=== PATIENT | male | born 1990 | race Caucasian/White ===

== ENCOUNTER 2017-05-07 23:08 | Inpatient (IN) | payer MEDICAID ==
[~2017-05-07] VITALS: Ht 170.2 cm; Wt 51.7 kg
[2017-05-07] MEDS ORDERED: SODIUM CHLORIDE 0.9% 1,000 ML IV ONE (23:14)
[2017-05-07] MEDS ORDERED: InsuLIN REG 1unit/0.01ml Soln (100units/ml) IV ONE (23:15)
[2017-05-08] VITALS (14 sets, daily range): BP systolic 73–122; BP diastolic 34–72
[2017-05-08] MEDS ORDERED: InsuLIN R (HUMAN) 100 UNITS in SODIUM CHL 0.9% 99 ML IV SCH ×2 (00:01→06:55)
[2017-05-08] MEDS ORDERED: DEXTROSE (50%) 50ML SYRG IV PRN ×3 (00:15→12:00)
[2017-05-08 00:30] LABS: Allen Test Yes; Base Excess -30.8 mmol/L (-2.0-2.0); Blood 02Sat 97.1 % (96-100); Blood COHb 0.3 % (0.5-1.5); Blood MetHb 0.5 % (0.0-1.5); HCO3 1.9 mmol/L (22-26.0); HHb 2.9 % (0.0-5.0); MODE NASAL CANNULA; O2Hb 96.3 % (94.0-97.0); PCO2 11.7 mmHg (35.0-45.0); PCO2(T) 11.7 mmHg (35.0-45.0); PO2 160.3 mmHg (80.0-100.0); PO2(T) 160.3 mmHg (80.0-100.0); Sample Type Arterial; pH 6.838 (7.350-7.450)
[2017-05-08] MEDS: SODIUM CHLORIDE 0.9% 1,000 ML IV SCH ×7 (00:30→23:18)
[2017-05-08 00:33] LABS: Basophils # (auto) 0 uL; Basophils % (auto) 0.3 % (0.0-2.0); CONDITION Y; Eosinophils # (auto) 0.1 uL; Eosinophils % (auto) 0.6 % (0.0-7.0); Hematocrit 41.7 % (41.0-53.0); Hemoglobin 13.2 g/dL (13.5-17.5); Lymphocytes # (auto) 2.2 uL; Lymphocytes % (auto) 12.6 % (10.0-50.0); Mean Corpuscular Hemoglobin 28.5 pg (28.0-32.0); Mean Corpuscular Hgb Conc. 31.7 g/dL (32.0-36.0); Mean Corpuscular Volume 90.1 fL (80.0-100.0); Mean Platelet Volume 9.3 fL (7.4-10.4); Monocytes # (auto) 0.1 uL; Monocytes % (auto) 0.8 % (0.0-12.0); Neutrophils # (auto) 15.3 uL; Neutrophils % (auto) 85.7 % (37.0-80.0); Platelet Count (auto) 353 10^3/uL (140-450); Red Cell Distribution Width 15.8 % (11.6-16.0); White Blood Cell 17.8 10^3/uL (4.4-10.8)
[2017-05-08] MEDS ORDERED: ETOMIDATE (2MG/ML) 20ML VIAL IV ONE ×3 (00:33→01:00)
[2017-05-08] MEDS ORDERED: SUCCINYLCHOLINE CHLORIDE 20 MG/ML 10ML VIAL IV ONE ×3 (00:33→01:00)
[2017-05-08] MEDS ORDERED: MIDAZOLAM DRIP 50 mg/50mL NS 50 ML IV ONE (00:37)
[2017-05-08 00:41] LABS: INR 1.02 (0.9-1.15); Partial Thromboplastin Time 28.2 sec (22.64-33.71); Prothrombin Time 11.1 sec (9.37-12.3)
[2017-05-08 00:46] LABS: Albumin 3.6 g/dL (3.4-5.0); Anion Gap 34 (5-15); Blood Urea Nitrogen 33 mg/dL (7-18); Chloride 104 mmol/L (98-107); Magnesium 2.6 mg/dL (1.6-2.6); Sodium 141 mmol/L (136-145)
[2017-05-08 00:49] LABS: Aspartate Aminotransferase 13 U/L (15-37); BUN/Creatinine Ratio 22.6; Bilirubin, Total 0.4 mg/dL (0.2-1.0); GFR African American 76 mL/min; GFR Non-African American 63 mL/min; Total Protein 7.4 g/dL (6.4-8.2)
[2017-05-08] MEDS ORDERED: MIDAZOLAM DRIP 50 mg/50mL NS 50 ML IV SCH (00:51)
[2017-05-08 00:54] LABS: B-Type Natriuretic Peptide 10.91 pg/mL (0-100)
[2017-05-08] MEDS: ACCU-CHEK COMFORT CURVE STRIP VI SCH ×15 (01:00→23:39)
[2017-05-08 01:04] LABS: Carbon Dioxide 3 mmol/L (21-32)
[2017-05-08 01:05] LABS: Alkaline Phosphatase 122 U/L (45-117); Glucose 776 mg/dL (74-106)
[2017-05-08 01:07] LABS: Temperature: 22.9 C (20.0-25.0)
[2017-05-08] MEDS ORDERED: ROCURONIUM 10MG/ML 10ML VIAL IV ONE (01:15)
[2017-05-08] MEDS ORDERED: SODIUM BICARBONATE 8.4% INJ 50ML SYRINGE ONE ×3 (01:15→06:06)
[2017-05-08] MEDS ORDERED: SODIUM BICARBONATE 8.4 % INJ 50ML VIAL IV ONE ×3 (01:15→17:30)
[2017-05-08] MEDS ORDERED: PROPOFOL 100 ML IV ONE (01:20)
[2017-05-08 01:22] LABS: Urine RBC None Seen /hpf (0 - 3)
[2017-05-08] MEDS ORDERED: PROPOFOL 100 ML IV SCH (01:38)
[2017-05-08 01:56] LABS: Urine Bilirubin Negative (Negative); Urine Blood Negative /uL (Negative); Urine Color Colorless (Yellow); Urine Hyaline Cast FEW /lpf (0 - 2); Urine Nitrite Negative (Negative); Urine Urobilinogen Normal (Negative)
[2017-05-08 01:57] LABS: Urine Glucose 4+ mg/dL (Normal); Urine Ketone 4+ (Negative)
[2017-05-08 03:11] LABS: Allen Test Yes; Base Excess -22.6 mmol/L (-2.0-2.0); Blood 02Sat 97.8 % (96-100); Blood COHb 0.3 % (0.5-1.5); Blood MetHb 0.5 % (0.0-1.5); HCO3 4.7 mmol/L (22-26.0); HHb 2.2 % (0.0-5.0); MODE VENT - A/C; PCO2 14.8 mmHg (35.0-45.0); PCO2(T) 14.8 mmHg (35.0-45.0); PO2 156.7 mmHg (80.0-100.0); PO2(T) 156.7 mmHg (80.0-100.0); Sample Type Arterial; pH 7.116 (7.350-7.450)
[2017-05-08] MEDS ORDERED: SODIUM CHLORIDE 0.9% 1,000 ML IV SCH ×3 (04:01→10:55)
[2017-05-08 05:55] LABS: Allen Test Modified; Base Excess -16.2 mmol/L (-2.0-2.0); Blood COHb 0.3 % (0.5-1.5); Blood MetHb 0.5 % (0.0-1.5); HCO3 8.9 mmol/L (22-26.0); IE RATIO 1.3:1; MODE VENT - A/C; O2Hb 97.2 % (94.0-97.0); PCO2 20.6 mmHg (35.0-45.0); PCO2(T) 20.6 mmHg (35.0-45.0); PO2 160.9 mmHg (80.0-100.0); PO2(T) 160.9 mmHg (80.0-100.0); Sample Type Arterial; pH 7.255 (7.350-7.450)
[2017-05-08] MEDS ORDERED: CALCIUM GLUC 4.65 MEQ/10ML 4.65 MEQ in SODIUM CHL 0.9% 50 ML IV ONE (06:00)
[2017-05-08] MEDS ORDERED: cefTRIAXone 1GM/50ML D5W 50 ML IV ONE (06:00)
[2017-05-08] MEDS: SODIUM BICARBONATE 8.4 % INJ 50ML VIAL IV ONE ×2 (06:04→06:17)
[2017-05-08] MEDS ORDERED: CALCIUM GLUC 4.65 MEQ/10ML 10 ML IV ONE (06:07)
[2017-05-08 06:24] LABS: Anion Gap 19 (5-15); BUN/Creatinine Ratio 51.7; Blood Urea Nitrogen 15 mg/dL (7-18); Chloride 136 mmol/L (98-107); GFR African American 489 mL/min; GFR Non-African American 404 mL/min; Glucose 134 mg/dL (74-106)
[2017-05-08 06:37] LABS: Sodium 162 mmol/L (136-145)
[2017-05-08 06:40] LABS: Carbon Dioxide 7 mmol/L (21-32); Potassium 2.5 mmol/L (3.5-5.1)
[2017-05-08 06:41] LABS: Calcium < 5.0 mg/dL (8.5-10.1)
[2017-05-08] MEDS ORDERED: NITROGLYCERIN 0.4 MG SL TAB SL PRN (07:00)
[2017-05-08] MEDS ORDERED: MORPHINE SULF INJ 2 MG/ML SYRINGE 1ML IV PRN (07:00)
[2017-05-08] MEDS ORDERED: PIPERACILLIN-TAZOB 3.375GM 100 ML IV ONE (07:15)
[2017-05-08] MEDS: MIDAZOLAM DRIP 50 mg/50mL NS 50 ML IV SCH (07:45)
[2017-05-08] MEDS: PROPOFOL 100 ML IV SCH (07:45)
[2017-05-08] MEDS ORDERED: cefTRIAXone 1GM/50ML D5W 50 ML IV SCH ×2 (08:00→09:00)
[2017-05-08 08:01] LABS: CONDITION Y; DEFINITIVE SEE PRINTOUT; Hematocrit 36.3 % (41.0-53.0); Hemoglobin 11.9 g/dL (13.5-17.5); Mean Corpuscular Hemoglobin 28.6 pg (28.0-32.0); Mean Corpuscular Hgb Conc. 32.9 g/dL (32.0-36.0); Mean Corpuscular Volume 86.7 fL (80.0-100.0); Mean Platelet Volume 8.2 fL (7.4-10.4); Platelet Count (auto) 338 10^3/uL (140-450); Red Cell Distribution Width 15.4 % (11.6-16.0); White Blood Cell 19.4 10^3/uL (4.4-10.8)
[2017-05-08 08:07] LABS: Metamyelocytes % 0; Myelocytes % 0; Promyelocytes % 0; Reactive Lymphocytes 0
[2017-05-08 08:25] LABS: Albumin 3.2 g/dL (3.4-5.0); BUN/Creatinine Ratio 25.5; Bilirubin, Total 0.4 mg/dL (0.2-1.0); Calcium 7.7 mg/dL (8.5-10.1); Potassium 4.3 mmol/L (3.5-5.1); Total Protein 6.4 g/dL (6.4-8.2)
[2017-05-08 08:34] LABS: Burr Cells FEW; Magnesium 2.6 mg/dL (1.6-2.6); Phosphorus 2.8 mg/dL (2.5-4.90); Platelet Estimate Adequate
[2017-05-08 08:43] LABS: Allen Test Yes; Base Excess -17.6 mmol/L (-2.0-2.0); Blood 02Sat 97.3 % (96-100); Blood COHb 0.3 % (0.5-1.5); Blood MetHb 0.4 % (0.0-1.5); HCO3 8.7 mmol/L (22-26.0); HHb 2.7 % (0.0-5.0); MODE VENT - A/C; O2Hb 96.6 % (94.0-97.0); PCO2 22.6 mmHg (35.0-45.0); PCO2(T) 22.6 mmHg (35.0-45.0); PO2 130.2 mmHg (80.0-100.0); PO2(T) 130.2 mmHg (80.0-100.0); Room 1030-ERT; Sample Type Arterial; pH 7.201 (7.350-7.450)
[2017-05-08] MEDS ORDERED: INSULIN NPH Isophane (HUMAN) 1unit/0.01ml Susp(100units/ml) SC ONE (11:15)
[2017-05-08] MEDS: InsuLIN REG 1unit/0.01ml Soln (100units/ml) SC SCH ×3 (12:00→23:39)
[2017-05-08] MEDS: PIPERACILLIN-TAZOB 3.375GM 100 ML IV SCH ×3 (12:09→23:40)
[2017-05-08 12:56] LABS: Albumin 2.8 g/dL (3.4-5.0); BUN/Creatinine Ratio 21.1; Bilirubin, Total 0.3 mg/dL (0.2-1.0); Calcium 7.2 mg/dL (8.5-10.1); Potassium 3.9 mmol/L (3.5-5.1); Total Protein 5.5 g/dL (6.4-8.2)
[2017-05-08 18:08] LABS: BUN/Creatinine Ratio 14.3; Calcium 7.3 mg/dL (8.5-10.1); Potassium 3.9 mmol/L (3.5-5.1)
[2017-05-08] MEDS ORDERED: SOD CHL 0.45% 1,000 ML IV STA (18:59)
[2017-05-08] MEDS ORDERED: SOD CHL 0.45% 1,000 ML IV ONE (19:15)
[2017-05-08 20:09] LABS: Base Excess -10.9 mmol/L (-2.0-2.0); Blood 02Sat 95.8 % (96-100); Blood COHb 0.2 % (0.5-1.5); Blood MetHb 0.4 % (0.0-1.5); HCO3 13.2 mmol/L (22-26.0); HHb 4.2 % (0.0-5.0); MODE VENT - A/C; O2Hb 95.2 % (94.0-97.0); PCO2 24.5 mmHg (35.0-45.0); PCO2(T) 24.5 mmHg (35.0-45.0); PO2 94.1 mmHg (80.0-100.0); PO2(T) 94.1 mmHg (80.0-100.0); Room 1030-ERT; Sample Type Arterial; pH 7.348 (7.350-7.450)
[2017-05-08] MEDS: NOREPINEPHRINE BITARTRATE 250 ML IV SCH (20:20)
[2017-05-09] VITALS (86 sets, daily range): BP systolic 65–124; BP diastolic 54–87
[2017-05-09] MEDS: MIDAZOLAM DRIP 50 mg/50mL NS 50 ML IV SCH ×5 (01:30→23:51)
[2017-05-09 03:56] LABS: Basophils # (auto) 0 uL; Basophils % (auto) 0.2 % (0.0-2.0); CONDITION Y; DEFINITIVE SEE PRINTOUT; Eosinophils # (auto) 0.1 uL; Eosinophils % (auto) 0.4 % (0.0-7.0); Hematocrit 32.2 % (41.0-53.0); Hemoglobin 10.7 g/dL (13.5-17.5); Lymphocytes # (auto) 1.9 uL; Lymphocytes % (auto) 15.2 % (10.0-50.0); Mean Corpuscular Hemoglobin 28.3 pg (28.0-32.0); Mean Corpuscular Hgb Conc. 33.2 g/dL (32.0-36.0); Mean Corpuscular Volume 85.3 fL (80.0-100.0); Mean Platelet Volume 7.8 fL (7.4-10.4); Monocytes # (auto) 1.7 uL; Neutrophils # (auto) 9.1 uL; Neutrophils % (auto) 71.2 % (37.0-80.0); Platelet Count (auto) 275 10^3/uL (140-450); Red Cell Distribution Width 15.6 % (11.6-16.0); White Blood Cell 12.8 10^3/uL (4.4-10.8)
[2017-05-09 04:18] LABS: Albumin 2.3 g/dL (3.4-5.0); BUN/Creatinine Ratio 10.1; Calcium 6.9 mg/dL (8.5-10.1); Potassium 3.2 mmol/L (3.5-5.1)
[2017-05-09 04:20] LABS: Bilirubin, Total 0.3 mg/dL (0.2-1.0); Total Protein 5.3 g/dL (6.4-8.2)
[2017-05-09] MEDS: PIPERACILLIN-TAZOB 3.375GM 100 ML IV SCH ×3 (05:17→18:22)
[2017-05-09] MEDS: ACCU-CHEK COMFORT CURVE STRIP VI SCH ×3 (05:17→18:20)
[2017-05-09] MEDS: InsuLIN REG 1unit/0.01ml Soln (100units/ml) SC SCH ×3 (05:50→18:21)
[2017-05-09] MEDS: PROPOFOL 100 ML IV SCH ×2 (05:51→20:55)
[2017-05-09] MEDS ORDERED: POTASSIUM CHL 10% (20 MEQ/15ML) ORAL SOLN GT ONE (06:15)
[2017-05-09] MEDS ORDERED: D5W/SOD CHL 0.45% 1,000 ML IV SCH (06:15)
[2017-05-09 08:32] LABS: Base Excess -8.7 mmol/L (-2.0-2.0); Blood 02Sat 96.6 % (96-100); Blood COHb 0.5 % (0.5-1.5); Blood MetHb 0.1 % (0.0-1.5); HCO3 16.7 mmol/L (22-26.0); HHb 3.4 % (0.0-5.0); MODE VENT - A/C; PCO2 34.2 mmHg (35.0-45.0); PCO2(T) 34.2 mmHg (35.0-45.0); PO2 100.3 mmHg (80.0-100.0); PO2(T) 100.3 mmHg (80.0-100.0); Sample Type Arterial; pH 7.307 (7.350-7.450)
[2017-05-09] MEDS: D5W/SOD CHL 0.45%/KCL 40MEQ 1,000 ML IV SCH (11:08)
[2017-05-09] MEDS: PANTOPRAZOLE SODIUM 40 MG/10 ML VIAL IV SCH (16:21)
[2017-05-09] MEDS: NOREPINEPHRINE BITARTRATE 250 ML IV SCH (20:20)
[2017-05-10] VITALS (76 sets, daily range): BP systolic 85–132; BP diastolic 47–87
[2017-05-10] MEDS: ACCU-CHEK COMFORT CURVE STRIP VI SCH ×5 (00:16→23:44)
[2017-05-10] MEDS: PIPERACILLIN-TAZOB 3.375GM 100 ML IV SCH ×5 (00:16→23:44)
[2017-05-10] MEDS: InsuLIN REG 1unit/0.01ml Soln (100units/ml) SC SCH ×5 (00:35→23:49)
[2017-05-10 02:57] LABS: Basophils # (auto) 0 uL; Basophils % (auto) 0.3 % (0.0-2.0); CONDITION Y; Eosinophils # (auto) 0.1 uL; Eosinophils % (auto) 1.4 % (0.0-7.0); Hematocrit 34.8 % (41.0-53.0); Hemoglobin 11.4 g/dL (13.5-17.5); Lymphocytes # (auto) 1.6 uL; Lymphocytes % (auto) 18.3 % (10.0-50.0); Mean Corpuscular Hemoglobin 28.2 pg (28.0-32.0); Mean Corpuscular Hgb Conc. 32.8 g/dL (32.0-36.0); Mean Platelet Volume 7.8 fL (7.4-10.4); Monocytes # (auto) 0.8 uL; Monocytes % (auto) 8.8 % (0.0-12.0); Neutrophils # (auto) 6.3 uL; Neutrophils % (auto) 71.2 % (37.0-80.0); Platelet Count (auto) 250 10^3/uL (140-450); Red Cell Distribution Width 15.3 % (11.6-16.0); White Blood Cell 8.8 10^3/uL (4.4-10.8)
[2017-05-10] MEDS: D5W/SOD CHL 0.45%/KCL 40MEQ 1,000 ML IV SCH (03:15)
[2017-05-10 03:23] LABS: Albumin 2.1 g/dL (3.4-5.0); Calcium 7.4 mg/dL (8.5-10.1); Potassium 3.6 mmol/L (3.5-5.1)
[2017-05-10 03:31] LABS: BUN/Creatinine Ratio 6.3; Bilirubin, Total 0.3 mg/dL (0.2-1.0); Total Protein 5.1 g/dL (6.4-8.2)
[2017-05-10] MEDS: PANTOPRAZOLE SODIUM 40 MG/10 ML VIAL IV SCH (09:08)
[2017-05-10 09:55] LABS: Allen Test Yes; Base Excess -13.2 mmol/L (-2.0-2.0); Blood 02Sat 97.4 % (96-100); Blood COHb 0.7 % (0.5-1.5); Blood MetHb 0.3 % (0.0-1.5); HCO3 11.9 mmol/L (22-26.0); HHb 2.6 % (0.0-5.0); MODE VENT - CPAP; O2Hb 96.4 % (94.0-97.0); PCO2 26.1 mmHg (35.0-45.0); PCO2(T) 26.1 mmHg (35.0-45.0); PO2 117.8 mmHg (80.0-100.0); PO2(T) 117.8 mmHg (80.0-100.0); Pressure Support 8; Sample Type Arterial; pH 7.278 (7.350-7.450)
[2017-05-10] MEDS ORDERED: InsuLIN REG 1unit/0.01ml Soln (100units/ml) IV ONE (12:45)
[2017-05-10] MEDS ORDERED: SOD CHL 0.45% 1,000 ML IV SCH (12:45)
[2017-05-10] MEDS ORDERED: MIDAZOLAM HCL 1MG/1ML-2 ML VIAL ONE (12:49)
[2017-05-10] MEDS: SOD CHL 0.9%/ KCL 40MEQ 1,000 ML IV SCH ×2 (13:21→20:45)
[2017-05-10] MEDS ORDERED: MIDAZOLAM HCL 1MG/1ML-2 ML VIAL IV PRN (13:30)
[2017-05-10 14:23] LABS: Allen Test Yes; Base Excess -20.3 mmol/L (-2.0-2.0); Blood COHb 0.4 % (0.5-1.5); Blood MetHb 0.4 % (0.0-1.5); HCO3 5.8 mmol/L (22-26.0); MODE VENT - SIMV; O2Hb 97.2 % (94.0-97.0); PCO2 15.8 mmHg (35.0-45.0); PCO2(T) 15.8 mmHg (35.0-45.0); PO2 141.7 mmHg (80.0-100.0); PO2(T) 141.7 mmHg (80.0-100.0); Pressure Support 8; Sample Type Arterial; pH 7.181 (7.350-7.450)
[2017-05-10] MEDS: fentaNYL Drip 2500mCg/250mlNS 250 ML IV SCH (17:23)
[2017-05-10] MEDS: NOREPINEPHRINE BITARTRATE 250 ML IV SCH (20:20)
[2017-05-10] MEDS ORDERED: SOD CHL 0.9%/ KCL 40MEQ 1,000 ML IV ONE (20:45)
[2017-05-10] MEDS ORDERED: SODIUM BICARBONATE 8.4 % INJ 50ML VIAL IV ONE (20:45)
[2017-05-10] MEDS ORDERED: SODIUM BICARBONATE 8.4% INJ 50ML SYRINGE ONE ×2 (21:17→21:41)
[2017-05-10] MEDS ORDERED: SOD CHL 0.45% WITH 20MEQ KCL 1,000 ML IV ONE (22:00)
[2017-05-10] MEDS: POTASSIUM CHLORIDE IV SCH (22:45)
[2017-05-10] MEDS: SODIUM BICARB IV SCH (22:45)
[2017-05-10] MEDS: SOD CHL IV SCH (22:45)
[2017-05-10 23:08] LABS: Allen Test Modified; Blood 02Sat 96.9 % (96-100); Blood MetHb 0.2 % (0.0-1.5); HCO3 22.7 mmol/L (22-26.0); HHb 3.1 % (0.0-5.0); MODE VENT - A/C; O2Hb 96.7 % (94.0-97.0); PCO2 38.6 mmHg (35.0-45.0); PCO2(T) 38.6 mmHg (35.0-45.0); PO2 101.2 mmHg (80.0-100.0); PO2(T) 101.2 mmHg (80.0-100.0); Sample Type Arterial; pH 7.388 (7.350-7.450)
[2017-05-11] VITALS (106 sets, daily range): BP systolic 87–118; BP diastolic 43–77
[2017-05-11 04:05] LABS: Basophils # (auto) 0 uL; Basophils % (auto) 0.1 % (0.0-2.0); CONDITION Y; Eosinophils # (auto) 0.1 uL; Eosinophils % (auto) 1.6 % (0.0-7.0); Hematocrit 31.5 % (41.0-53.0); Hemoglobin 10.5 g/dL (13.5-17.5); Lymphocytes # (auto) 1.6 uL; Lymphocytes % (auto) 22.7 % (10.0-50.0); Mean Corpuscular Hemoglobin 28.8 pg (28.0-32.0); Mean Corpuscular Hgb Conc. 33.4 g/dL (32.0-36.0); Mean Corpuscular Volume 86.3 fL (80.0-100.0); Mean Platelet Volume 7.9 fL (7.4-10.4); Monocytes # (auto) 0.5 uL; Monocytes % (auto) 7.4 % (0.0-12.0); Neutrophils # (auto) 4.8 uL; Neutrophils % (auto) 68.2 % (37.0-80.0); Platelet Count (auto) 242 10^3/uL (140-450); Red Cell Distribution Width 15.1 % (11.6-16.0)
[2017-05-11 04:32] LABS: Albumin 2.1 g/dL (3.4-5.0); BUN/Creatinine Ratio 4.8; Bilirubin, Total 0.4 mg/dL (0.2-1.0); Calcium 7.8 mg/dL (8.5-10.1); Potassium 3.7 mmol/L (3.5-5.1)
[2017-05-11] MEDS: PIPERACILLIN-TAZOB 3.375GM 100 ML IV SCH ×4 (05:41→23:58)
[2017-05-11] MEDS: ACCU-CHEK COMFORT CURVE STRIP VI SCH ×12 (05:41→23:08)
[2017-05-11] MEDS: InsuLIN REG 1unit/0.01ml Soln (100units/ml) SC SCH ×2 (05:42→12:30)
[2017-05-11] MEDS: PROPOFOL 100 ML IV SCH ×2 (07:49→22:54)
[2017-05-11] MEDS: SODIUM BICARB IV SCH ×2 (07:50→16:05)
[2017-05-11] MEDS: POTASSIUM CHLORIDE IV SCH ×2 (07:50→16:05)
[2017-05-11] MEDS: SOD CHL IV SCH ×2 (07:50→16:05)
[2017-05-11 08:54] LABS: Base Excess -6.2 mmol/L (-2.0-2.0); Blood 02Sat 97.6 % (96-100); Blood COHb 0.4 % (0.5-1.5); Blood MetHb 0.2 % (0.0-1.5); HCO3 19.1 mmol/L (22-26.0); HHb 2.4 % (0.0-5.0); MODE VENT - A/C; PCO2 37.1 mmHg (35.0-45.0); PCO2(T) 37.1 mmHg (35.0-45.0); PO2 127.2 mmHg (80.0-100.0); PO2(T) 127.2 mmHg (80.0-100.0); Sample Type Arterial
[2017-05-11] MEDS: PANTOPRAZOLE SODIUM 40 MG/10 ML VIAL IV SCH (10:27)
[2017-05-11] MEDS ORDERED: InsuLIN R (HUMAN) 100 UNITS in SODIUM CHL 0.9% 99 ML IV SCH (12:35)
[2017-05-11] MEDS ORDERED: DEXTROSE (50%) 50ML SYRG IV PRN (12:45)
[2017-05-11] MEDS ORDERED: TPN PER PHARMACY 0 ML IV SCH (12:45)
[2017-05-11 13:20] LABS: Magnesium 2.1 mg/dL (1.6-2.6); Phosphorus 2.9 mg/dL (2.5-4.90)
[2017-05-11] MEDS ORDERED: ACCU-CHEK COMFORT CURVE STRIP VI SCH (13:30)
[2017-05-11] MEDS: MIDAZOLAM DRIP 50 mg/50mL NS 50 ML IV SCH (14:30)
[2017-05-11] MEDS ORDERED: LIDOCAINE 1% HCL (LOCAL ANESTH.) INJ 20ML MDV ID ONE (15:45)
[2017-05-11] MEDS: NOREPINEPHRINE BITARTRATE 250 ML IV SCH (20:20)
[2017-05-11] MEDS: fentaNYL Drip 2500mCg/250mlNS 250 ML IV SCH ×2 (20:54→22:53)
[2017-05-11] MEDS: SODIUM CHLOR 0.9% PF (SALINE LOCK) 10ML VIAL IV SCH (22:00)
[2017-05-12] VITALS (103 sets, daily range): BP systolic 88–143; BP diastolic 45–85
[2017-05-12] MEDS: ACCU-CHEK COMFORT CURVE STRIP VI SCH ×11 (00:02→23:50)
[2017-05-12] MEDS: MIDAZOLAM DRIP 50 mg/50mL NS 50 ML IV SCH (00:21)
[2017-05-12] MEDS: SODIUM BICARB IV SCH ×3 (00:23→22:46)
[2017-05-12] MEDS: POTASSIUM CHLORIDE IV SCH ×3 (00:23→22:46)
[2017-05-12] MEDS: SOD CHL IV SCH ×3 (00:23→22:46)
[2017-05-12 04:49] LABS: BUN/Creatinine Ratio 4.4; Basophils # (auto) 0 uL; Basophils % (auto) 0.3 % (0.0-2.0); Bilirubin, Total 0.3 mg/dL (0.2-1.0); CONDITION Y; Calcium 7.9 mg/dL (8.5-10.1); Eosinophils # (auto) 0.2 uL; Eosinophils % (auto) 2.3 % (0.0-7.0); Hemoglobin 9.7 g/dL (13.5-17.5); Lymphocytes # (auto) 1.6 uL; Lymphocytes % (auto) 17.8 % (10.0-50.0); Magnesium 1.8 mg/dL (1.6-2.6); Mean Corpuscular Hemoglobin 28.7 pg (28.0-32.0); Mean Corpuscular Hgb Conc. 33.4 g/dL (32.0-36.0); Mean Corpuscular Volume 85.9 fL (80.0-100.0); Monocytes # (auto) 0.5 uL; Monocytes % (auto) 5.9 % (0.0-12.0); Neutrophils # (auto) 6.4 uL; Neutrophils % (auto) 73.7 % (37.0-80.0); Phosphorus 2.6 mg/dL (2.5-4.90); Platelet Count (auto) 200 10^3/uL (140-450); Red Cell Distribution Width 15.7 % (11.6-16.0); White Blood Cell 8.7 10^3/uL (4.4-10.8)
[2017-05-12] MEDS: PIPERACILLIN-TAZOB 3.375GM 100 ML IV SCH ×4 (06:14→23:50)
[2017-05-12] MEDS ORDERED: DEXTROSE (50%) 50ML SYRG IV SCH (06:30)
[2017-05-12 08:03] LABS: Allen Test Yes; Blood 02Sat 95.6 % (96-100); Blood COHb 0.3 % (0.5-1.5); Blood MetHb 0.3 % (0.0-1.5); HCO3 24.7 mmol/L (22-26.0); HHb 4.4 % (0.0-5.0); MODE VENT - A/C; PCO2 40.4 mmHg (35.0-45.0); PCO2(T) 40.4 mmHg (35.0-45.0); PO2 90.5 mmHg (80.0-100.0); PO2(T) 90.5 mmHg (80.0-100.0); Sample Type Arterial; pH 7.404 (7.350-7.450)
[2017-05-12] MEDS ORDERED: CLINIMIX PER PHARMACY IV NR (08:30)
[2017-05-12] MEDS ORDERED: INSULIN NPH Isophane (HUMAN) 1unit/0.01ml Susp(100units/ml) SC ONE (09:45)
[2017-05-12] MEDS ORDERED: DEXTROSE (50%) 50ML SYRG IV PRN (09:45)
[2017-05-12] MEDS: SODIUM CHLOR 0.9% PF (SALINE LOCK) 10ML VIAL IV SCH ×2 (10:30→21:56)
[2017-05-12] MEDS: FAMOTIDINE (10MG/ML) 2ML VL IV SCH ×2 (11:15→21:56)
[2017-05-12] MEDS ORDERED: InsuLIN REG 1unit/0.01ml Soln (100units/ml) SC SCH (12:00)
[2017-05-12] MEDS ORDERED: ACCU-CHEK COMFORT CURVE STRIP VI SCH (12:00)
[2017-05-12] MEDS: InsuLIN REG 1unit/0.01ml Soln (100units/ml) SC SCH ×3 (12:10→21:46)
[2017-05-12 17:08] LABS: Allen Test Yes; Base Excess 3.7 mmol/L (-2.0-2.0); Blood 02Sat 96.3 % (96-100); Blood COHb 0.3 % (0.5-1.5); Blood MetHb 0.4 % (0.0-1.5); HCO3 27.2 mmol/L (22-26.0); HHb 3.7 % (0.0-5.0); MODE VENT - CPAP; O2Hb 95.6 % (94.0-97.0); PCO2 37.3 mmHg (35.0-45.0); PCO2(T) 37.3 mmHg (35.0-45.0); PO2 93.6 mmHg (80.0-100.0); PO2(T) 93.6 mmHg (80.0-100.0); Pressure Support 8; Sample Type Arterial; Spont Vt 525; pH 7.481 (7.350-7.450)
[2017-05-12] MEDS ORDERED: TPN PER PHARMACY IV NR ×9 (20:00)
[2017-05-12] MEDS: NOREPINEPHRINE BITARTRATE 250 ML IV SCH (20:20)
[2017-05-13] VITALS (27 sets, daily range): BP systolic 93–120; BP diastolic 41–90
[2017-05-13] MEDS: InsuLIN REG 1unit/0.01ml Soln (100units/ml) SC SCH ×6 (00:20→20:00)
[2017-05-13] MEDS: ACCU-CHEK COMFORT CURVE STRIP VI SCH ×6 (03:36→23:35)
[2017-05-13 04:03] LABS: Basophils # (auto) 0.1 uL; Basophils % (auto) 0.9 % (0.0-2.0); CONDITION Y; Eosinophils # (auto) 0.1 uL; Eosinophils % (auto) 0.8 % (0.0-7.0); Hematocrit 33.2 % (41.0-53.0); Hemoglobin 11.1 g/dL (13.5-17.5); Lymphocytes # (auto) 1.1 uL; Lymphocytes % (auto) 9.6 % (10.0-50.0); Mean Corpuscular Hemoglobin 28.2 pg (28.0-32.0); Mean Corpuscular Hgb Conc. 33.3 g/dL (32.0-36.0); Mean Corpuscular Volume 84.8 fL (80.0-100.0); Mean Platelet Volume 8.2 fL (7.4-10.4); Monocytes # (auto) 0.4 uL; Monocytes % (auto) 3.8 % (0.0-12.0); Neutrophils % (auto) 84.9 % (37.0-80.0); Platelet Count (auto) 197 10^3/uL (140-450); Red Cell Distribution Width 14.9 % (11.6-16.0); White Blood Cell 11.7 10^3/uL (4.4-10.8)
[2017-05-13 04:26] LABS: Albumin 2.1 g/dL (3.4-5.0); BUN/Creatinine Ratio 5.6; Bilirubin, Total 0.3 mg/dL (0.2-1.0); Calcium 8.2 mg/dL (8.5-10.1); Magnesium 1.5 mg/dL (1.6-2.6); Phosphorus 2.5 mg/dL (2.5-4.90); Potassium 3.5 mmol/L (3.5-5.1); Total Protein 5.6 g/dL (6.4-8.2)
[2017-05-13] MEDS: PIPERACILLIN-TAZOB 3.375GM 100 ML IV SCH ×4 (05:36→23:27)
[2017-05-13] MEDS: MIDAZOLAM DRIP 50 mg/50mL NS 50 ML IV SCH (05:37)
[2017-05-13] MEDS: PROPOFOL 100 ML IV SCH (05:37)
[2017-05-13] MEDS ORDERED: SODIUM CHLORIDE 0.9% 1,000 ML IV SCH (09:30)
[2017-05-13] MEDS: FAMOTIDINE (10MG/ML) 2ML VL IV SCH ×2 (10:00→22:37)
[2017-05-13] MEDS: SODIUM CHLOR 0.9% PF (SALINE LOCK) 10ML VIAL IV SCH ×2 (10:00→22:37)
[2017-05-13] MEDS: SOD CHL 0.9%/ KCL 40MEQ 1,000 ML IV SCH ×2 (13:23→19:45)
[2017-05-13] MEDS: HYDROcodone-ACET 5/325MG TAB PO PRN ×3 (13:50→22:37)
[2017-05-14] MEDS: SOD CHL 0.9%/ KCL 40MEQ 1,000 ML IV SCH ×3 (01:52→19:33)
[2017-05-14] MEDS: ACCU-CHEK COMFORT CURVE STRIP VI SCH ×5 (03:49→20:00)
[2017-05-14] MEDS: InsuLIN REG 1unit/0.01ml Soln (100units/ml) SC SCH ×6 (03:57→20:00)
[2017-05-14 05:00] VITALS: BP 112/70
[2017-05-14] MEDS: PIPERACILLIN-TAZOB 3.375GM 100 ML IV SCH ×4 (05:17→23:23)
[2017-05-14 05:57] LABS: Basophils # (auto) 0.1 uL; CONDITION Y; Eosinophils # (auto) 0.3 uL; Eosinophils % (auto) 4.1 % (0.0-7.0); Hematocrit 30.3 % (41.0-53.0); Hemoglobin 10.1 g/dL (13.5-17.5); Lymphocytes # (auto) 1.6 uL; Lymphocytes % (auto) 26.1 % (10.0-50.0); Mean Corpuscular Hemoglobin 28.6 pg (28.0-32.0); Mean Corpuscular Hgb Conc. 33.4 g/dL (32.0-36.0); Mean Corpuscular Volume 85.8 fL (80.0-100.0); Mean Platelet Volume 8.5 fL (7.4-10.4); Monocytes # (auto) 0.3 uL; Monocytes % (auto) 5.5 % (0.0-12.0); Neutrophils # (auto) 3.9 uL; Neutrophils % (auto) 62.3 % (37.0-80.0); Platelet Count (auto) 193 10^3/uL (140-450); Red Cell Distribution Width 14.4 % (11.6-16.0); White Blood Cell 6.3 10^3/uL (4.4-10.8)
[2017-05-14 06:29] LABS: Albumin 1.8 g/dL (3.4-5.0); Alkaline Phosphatase 84 U/L (45-117); Anion Gap 7 (5-15); Aspartate Aminotransferase 6 U/L (15-37); BUN/Creatinine Ratio 12.7; Bilirubin, Total 0.1 mg/dL (0.2-1.0); Blood Urea Nitrogen 8 mg/dL (7-18); Calcium 8.1 mg/dL (8.5-10.1); Carbon Dioxide 26 mmol/L (21-32); Chloride 106 mmol/L (98-107); GFR African American 200 mL/min; GFR Non-African American 165 mL/min; Glucose 293 mg/dL (74-106); Potassium 3.9 mmol/L (3.5-5.1); Sodium 139 mmol/L (136-145); Total Protein 5.3 g/dL (6.4-8.2)
[2017-05-14] MEDS: FAMOTIDINE (10MG/ML) 2ML VL IV SCH ×2 (08:30→21:18)
[2017-05-14 09:04] VITALS: BP 120/80
[2017-05-14] MEDS: HYDROcodone-ACET 5/325MG TAB PO PRN ×3 (11:07→23:23)
[2017-05-14] MEDS: SODIUM CHLOR 0.9% PF (SALINE LOCK) 10ML VIAL IV SCH ×2 (11:07→21:19)
[2017-05-14 13:00] VITALS: BP 123/85
[2017-05-14 17:25] VITALS: BP 118/75
[2017-05-14] MEDS: Boost Glucose Control 8 Ounces PO SCH (17:44)
[2017-05-14] MEDS: PRO-STAT 64 30ML PO SCH (17:44)
[2017-05-14] MEDS ORDERED: HYDR-4072 PO (18:25)
[2017-05-14] MEDS ORDERED: INSUINJ IJ (18:25)
[2017-05-14] MEDS ORDERED: INSLANTI SC (19:01)
[2017-05-14] MEDS ORDERED: InsuLIN REG 1unit/0.01ml Soln (100units/ml) SC ONE (21:00)
[2017-05-14] MEDS ORDERED: SODIUM CHLORIDE 0.9% 1,000 ML IV ONE (21:00)
[2017-05-14 22:00] VITALS: BP 111/78
[2017-05-14] MEDS ORDERED: INSULIN DETEMIR(LEVEMIR) 1unit/0.01ml Soln (100units/ml) SC SCH (22:00)
[2017-05-15] MEDS: ACCU-CHEK COMFORT CURVE STRIP VI SCH ×4 (00:07→12:59)
[2017-05-15] MEDS: InsuLIN REG 1unit/0.01ml Soln (100units/ml) SC SCH ×4 (04:00→12:00)
[2017-05-15 05:00] VITALS: BP 112/77
[2017-05-15] MEDS: PIPERACILLIN-TAZOB 3.375GM 100 ML IV SCH ×2 (05:07→12:00)
[2017-05-15] MEDS: SOD CHL 0.9%/ KCL 40MEQ 1,000 ML IV SCH ×2 (05:13→08:53)
[2017-05-15 08:00] VITALS: BP 122/86
[2017-05-15 08:46] LABS: Calcium 8.9 mg/dL (8.5-10.1); Magnesium 2.3 mg/dL (1.6-2.6); Potassium 4.8 mmol/L (3.5-5.1)
[2017-05-15 08:48] LABS: BUN/Creatinine Ratio 18.3
[2017-05-15] MEDS: Boost Glucose Control 8 Ounces PO SCH (09:14)
[2017-05-15] MEDS: PRO-STAT 64 30ML PO SCH (09:14)
[2017-05-15] MEDS: FAMOTIDINE (10MG/ML) 2ML VL IV SCH (09:36)
[2017-05-15] MEDS: SODIUM CHLOR 0.9% PF (SALINE LOCK) 10ML VIAL IV SCH (09:36)
[2017-05-15] MEDS ORDERED: SODIUM CHLORIDE 0.9% 1,000 ML IV ONE (10:00)
== END 2017-05-15 12:30 | disposition home or self-care (01) | DRG 420 ==
LOC: EDBD 23:08 → ER 23:08 → TELE 23:09 → ICU WEST 05-08 22:30 → TELE-WESTW 05-13 10:50
PROVIDERS: ADMIT Nurse Practitioner Family; ATTEND Internal Medicine
PROC: 5A1955Z Respiratory Ventilation, Greater than 96 Consecutive Hours (ICD-10-PCS; principal; 2017-05-08)
PROC: 0BH17EZ Insertion of Endotracheal Airway into Trachea, Via Natural or Artificial Opening (ICD-10-PCS; 2017-05-08)
PROC: 02HV33Z Insertion of Infusion Device into Superior Vena Cava, Percutaneous Approach (ICD-10-PCS; 2017-05-08)
DX: E13.11 Other specified diabetes mellitus with ketoacidosis with coma (principal); J96.00 Acute respiratory failure, unspecified whether with hypoxia or hypercapnia; G92 Toxic encephalopathy; J98.11 Atelectasis; F17.210 Nicotine dependence, cigarettes, uncomplicated; F15.10 Other stimulant abuse, uncomplicated; Z79.4 Long term (current) use of insulin; Z83.3 Family history of diabetes mellitus; Z91.19 Patient's noncompliance with other medical treatment and regimen
CPT/HCPCS: 31500; 36415; 36600; 71010; 80048; 80053; 80307; 80320; 81001; 82010; 82040; 82805; 82962; 83735; 83880; 83930; 84100; 84478; 84484; 85007; 85025; 85027; 85610; 85730; 87040; 87081; 87493; 94002; 94003; 96361; 96365; 96366; 96367; 96375; 96376; 99291; A4565; C9113; J0330; J0696; J1815; J2250; J2543; J2704; J3010; J3490

== ENCOUNTER 2017-10-29 14:39 | Inpatient (IN) | payer MEDICAID ==
[~2017-10-29] VITALS: Ht 165.1 cm; Wt 49.2 kg
[~2017-10-29 14:39] MED LIST: DIAZ10TA PO; HYDR-4072 PO; INSLANTI SC; INSUINJ IJ; PROM25TA5 PO
[2017-10-29 20:28] LABS: Basophils # (auto) 0 uL; Basophils % (auto) 0.4 % (0.0-2.0); Eosinophils # (auto) 0 uL; Eosinophils % (auto) 0.1 % (0.0-7.0); Hematocrit 48.9 % (41.0-53.0); Hemoglobin 16.4 g/dL (13.5-17.5); Lymphocytes # (auto) 1.1 uL; Lymphocytes % (auto) 14.3 % (10.0-50.0); Mean Corpuscular Hemoglobin 28.7 pg (28.0-32.0); Mean Corpuscular Hgb Conc. 33.6 g/dL (32.0-36.0); Mean Corpuscular Volume 85.6 fL (80.0-100.0); Monocytes # (auto) 0.7 uL; Monocytes % (auto) 9.5 % (0.0-12.0); Neutrophils # (auto) 5.6 uL; Neutrophils % (auto) 75.7 % (37.0-80.0); Nucleated Red Blood Cells % 0.7 %; Platelet Count (auto) 322 10^3/uL (140-450); Red Blood Cells 5.71 10^6/uL (4.5-5.90); Red Cell Distribution Width 14.2 % (11.8-14.3); White Blood Cell 7.4 10^3/uL (4.4-10.8)
[2017-10-29 21:06] LABS: Albumin 4.8 g/dL (3.4-5.0); BUN/Creatinine Ratio 30.8; Calcium 9.5 mg/dL (8.5-10.1); Total Protein 9.7 g/dL (6.4-8.2)
[2017-10-30] MEDS ORDERED: SODIUM CHLORIDE 0.9% 1,000 ML IV ONE ×2 (06:00→07:15)
[2017-10-30] MEDS ORDERED: InsuLIN REG 1unit/0.01ml Soln (100units/ml) IV ONE ×3 (06:00→10:00)
[2017-10-30] MEDS ORDERED: PROMETHAZINE HCL 25 MG/ML 1ML IV ONE (07:00)
[2017-10-30] MEDS ORDERED: DIAZEPAM 5 MG TAB PO PRN (10:15)
[2017-10-30] MEDS ORDERED: PROMETHAZINE HCL 25 MG/ML 1ML IV PRN (10:15)
[2017-10-30] MEDS ORDERED: ACETAMINOPHEN 325 MG TAB PO PRN (10:15)
[2017-10-30] MEDS ORDERED: MORPHINE SULF INJ 2 MG/ML SYRINGE 1ML IV PRN (10:15)
[2017-10-30] MEDS ORDERED: DEXTROSE (50%) 50ML SYRG IV PRN (10:15)
[2017-10-30] MEDS ORDERED: DOCUSATE SOD 100 MG CAP PO PRN (10:15)
[2017-10-30] MEDS ORDERED: MORPHINE SULFATE 4 MG/ML SYR/VIAL IV PRN (10:15)
[2017-10-30] MEDS ORDERED: NITROGLYCERIN 0.4 MG SL TAB SL PRN (10:15)
[2017-10-30] MEDS ORDERED: TEMAZEPAM 15 MG CAP PO PRN (10:15)
[2017-10-30] MEDS: SODIUM CHLORIDE 0.9% 1,000 ML IV SCH ×2 (10:16→16:12)
[2017-10-30] MEDS: FAMOTIDINE 20 MG TAB PO SCH ×2 (10:52→22:00)
[2017-10-30 12:13] LABS: Urine Bacteria NONE SEEN /hpf (None Seen); Urine Blood Negative /uL (Negative); Urine Specific Gravity 1.016 (1.001-1.035); Urine WBC <1 /hpf (0 - 3)
[2017-10-30] MEDS: ACCU-CHEK COMFORT CURVE STRIP VI SCH ×3 (12:13→20:08)
[2017-10-30] MEDS: InsuLIN REG 1unit/0.01ml Soln (100units/ml) SC SCH ×3 (12:14→20:00)
[2017-10-30 12:28] LABS: Alcohol, Urine < 3.0 mg/dL (0-5); Amphetamine Screen, Urine NEGATIVE (NEGATIVE); Barbiturate Scree,Urine NEGATIVE (NEGATIVE); Benzodiazephine Screen, Urine NEGATIVE (NEGATIVE); Cannabinoid Screen, Urine POSITIVE (NEGATIVE); Cocaine Screen, Urine NEGATIVE (NEGATIVE); Opiate Scree,Urine NEGATIVE (NEGATIVE); Phencyclidine Screen, Urine NEGATIVE (NEGATIVE)
[2017-10-30] MEDS: INSULIN DETEMIR(LEVEMIR) 1unit/0.01ml Soln (100units/ml) SC SCH (22:00)
[2017-10-31] MEDS: ACCU-CHEK COMFORT CURVE STRIP VI SCH ×7 (00:02→21:37)
[2017-10-31] MEDS: InsuLIN REG 1unit/0.01ml Soln (100units/ml) SC SCH ×7 (00:15→21:37)
[2017-10-31] MEDS: SODIUM CHLORIDE 0.9% 1,000 ML IV SCH ×3 (03:00→18:11)
[2017-10-31 06:32] LABS: Basophils # (auto) 0 uL; Basophils % (auto) 0.5 % (0.0-2.0); Eosinophils # (auto) 0.1 uL; Eosinophils % (auto) 1.2 % (0.0-7.0); Hematocrit 39.4 % (41.0-53.0); Hemoglobin 13.6 g/dL (13.5-17.5); Lymphocytes # (auto) 1.8 uL; Lymphocytes % (auto) 26.7 % (10.0-50.0); Mean Corpuscular Hemoglobin 28.9 pg (28.0-32.0); Mean Corpuscular Hgb Conc. 34.6 g/dL (32.0-36.0); Mean Corpuscular Volume 83.5 fL (80.0-100.0); Monocytes # (auto) 0.8 uL; Monocytes % (auto) 12.9 % (0.0-12.0); Neutrophils # (auto) 3.8 uL; Neutrophils % (auto) 58.7 % (37.0-80.0); Nucleated Red Blood Cells % 0.1 %; Platelet Count (auto) 248 10^3/uL (140-450); Red Blood Cells 4.72 10^6/uL (4.5-5.90); Red Cell Distribution Width 13.6 % (11.8-14.3); White Blood Cell 6.6 10^3/uL (4.4-10.8)
[2017-10-31 06:51] LABS: Albumin 3.5 g/dL (3.4-5.0); BUN/Creatinine Ratio 30.4; Calcium 8.7 mg/dL (8.5-10.1); Potassium 3.1 mmol/L (3.5-5.1)
[2017-10-31 07:23] LABS: Bilirubin, Total 0.4 mg/dL (0.2-1.0); Total Protein 6.9 g/dL (6.4-8.2)
[2017-10-31] MEDS: FAMOTIDINE 20 MG TAB PO SCH ×2 (08:13→21:37)
[2017-10-31] MEDS: MULTIPLE VITAMIN TAB PO SCH (08:13)
[2017-10-31] MEDS: HYDROcodone-ACET 5/325MG TAB PO PRN ×2 (13:07→20:15)
[2017-10-31 17:00] VITALS: BP 116/83
[2017-10-31] MEDS: INSULIN DETEMIR(LEVEMIR) 1unit/0.01ml Soln (100units/ml) SC SCH (21:37)
[2017-10-31 22:02] VITALS: BP 104/77
[2017-11-01] MEDS: HYDROcodone-ACET 5/325MG TAB PO PRN ×3 (04:14→16:43)
[2017-11-01 05:00] VITALS: BP 114/76
[2017-11-01] MEDS: InsuLIN REG 1unit/0.01ml Soln (100units/ml) SC SCH ×3 (06:12→16:48)
[2017-11-01] MEDS: ACCU-CHEK COMFORT CURVE STRIP VI SCH ×3 (06:12→16:42)
[2017-11-01 09:11] VITALS: BP 121/80
[2017-11-01] MEDS: MULTIPLE VITAMIN TAB PO SCH (09:55)
[2017-11-01] MEDS: SODIUM CHLORIDE 0.9% 1,000 ML IV SCH ×2 (09:55→11:20)
[2017-11-01] MEDS: FAMOTIDINE 20 MG TAB PO SCH (09:55)
[2017-11-01 13:00] VITALS: BP 117/78
[2017-11-01 16:12] VITALS: BP 111/69
== END 2017-11-01 20:35 | disposition home or self-care (01) | DRG 469 ==
LOC: ER 14:39 → TELE 14:40 → CENTRAL 10-31 17:10 → TELE-CENTR 11-01 07:51
PROVIDERS: ADMIT Internal Medicine; ATTEND Internal Medicine
DX: N17.9 Acute kidney failure, unspecified (principal); E11.10 Type 2 diabetes mellitus with ketoacidosis without coma; E87.8 Other disorders of electrolyte and fluid balance, not elsewhere classified; E87.1 Hypo-osmolality and hyponatremia; E86.0 Dehydration; F17.210 Nicotine dependence, cigarettes, uncomplicated; G89.29 Other chronic pain; I25.10 Atherosclerotic heart disease of native coronary artery without angina pectoris; I25.2 Old myocardial infarction; Z83.3 Family history of diabetes mellitus; Z98.61 Coronary angioplasty status; Z88.8 Allergy status to other drugs, medicaments and biological substances; Z79.4 Long term (current) use of insulin; Z79.899 Other long term (current) drug therapy
CPT/HCPCS: 36415; 36600; 80053; 80307; 80320; 81001; 82010; 82805; 82962; 83036; 83735; 83880; 84443; 84484; 85025; 87081; 94761; 96361; 96374; 96375; 96376; J1815